=== PATIENT | female | born 1960 | race Hispanic/Latino ===

== ENCOUNTER 2018-02-27 13:57 | Emergency (ER) | payer OTHER ==
[2018-02-27 14:02] VITALS: RESP 16; TEMP 98.1; O2SAT 100
[2018-02-27] MEDS ORDERED: Tdap Vaccine 0.5 ml Vial (10-64 yrs) IM ONE ×2 (14:14→14:35)
[2018-02-27] MEDS ORDERED: Amoxicillin-Clav 875-125 mg Tab PO STA (14:14)
--- NOTE | 2018-02-27 14:24 | ED PDOC ---
HPI: Eye Injury/Pain Time Seen by Provider: 02/27/18 14:04 Chief Complaint (Nursing): Eye Problem Chief Complaint (Provider): Eye Problem History Per: Patient History/Exam Limitations: no limitations Onset/Duration Of Symptoms: Other (just prior to arrival) Current Symptoms Are (Timing): Still Present Additional Complaint(s): 57 y/o female with a pmhx of HTN, who presents to the ED for evaluation of a scratch to her left upper eyelid which occurred just prior to arrival. Patient [place] the dog park [place] she was playing with a friend's dog who got excited and jumped on her, causing her to receive a scratch to the upper eyelid of her left eye from the dog's paw. Patient denies any injury to the eye itself. Patient denies active bleeding or visual changes. Also denies fever, LOC , or headache. 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 LMP was [address] Catina Mancilla Past Medical History Reviewed: Historical Data, Nursing Documentation, Vital Signs Vital Signs: Last Vital Signs Temp 98.1 F 02/27/18 14:00 Pulse 98 H 02/27/18 14:00 Resp 16 02/27/18 14:00 BP 169/89 H 02/27/18 14:00 Pulse Ox 100 02/27/18 14:00 - Medical History PMH: HTN - Surgical History Surgical History: Cholecystectomy - Family History Family History: States: Unknown Family Hx - Social History Current smoker - smoking cessation education provided: No Alcohol: Social Drugs: Denies - Home Medications Home Medications: Ambulatory Orders Medication Instructions Recorded Amoxicillin/Clavulanate [Augmentin 1 tab PO BID #14 tab 02/27/18 875 MG-125 MG] Bacitracin OINT 1 applic TP BID #1 tube 02/27/18 - Allergies Allergies/Adverse Reactions: Allergies Allergy/AdvReac Type Severity Reaction Status Date / Time Sulfa (Sulfonamide Allergy RASH Verified 02/27/18 14:00 Antibiotics) Review of Systems ROS Statement: Except As Marked, All Systems Reviewed And Found Negative Eyes: Positive for: Pain (left upper eyelid), Other Skin: Positive for: Lesions (abrasion to left upper eyelid) Physical Exam - Reviewed Nursing Documentation Reviewed: Yes Vital Signs Reviewed: Yes - Physical Exam Comments: GENERAL APPEARANCE: Patient is awake, alert, oriented x 3, in no acute distress. Ambulatory in ED with a steady gait. SKIN: Warm, dry; (-) cyanosis NECK: Supple, FROM ENT: Mucus membranes moist. Nasal bridge nontender. Nares patent bilaterally. EYES: (+) 0.5 cm superficial abrasion to the medial aspect of the upper eyelid just superior to the medial canthus of the left eye, (-) active bleeding (+) mild surrounding ecchymosis, (+) mild tendernes to palpation (-) edema of eyelid. (-) orbital or globe tenderness. (-) conjunctival pallor or injection, (-) scleral icterus, (-) nystagmus, (-) hyphema, (-) chemosis. CHEST AND RESPIRATORY: (-) rales, (-) rhonchi, (-) wheezes; breath sounds equal. Speaking in full sentences, respirations even and nonlabored. ABDOMEN: Soft, (-) distention, (-) tenderness, (-) guarding. NEURO AND PSYCH: Mental status as above. business process consultant: Intact. Pupils equal and reactive ; EOMI and painless; (-) facial asymmetry; tongue and uvula midline. Strength symmetric. - ECG O2 Sat by Pulse Oximetry: 100 (RA) Pulse Ox Interpretation: Normal Medical Decision Making Medical Decision Makin:14 Initial Impression: Eyelid abrasion Plan: --Tetanus 0.5ml IM --Augmentin 1 tab PO --Ultram 50mg PO ( Patient states she will not be driving home) --Re-evaluation --Wound irrigation and topical bacitracin. Rabies vaccine is not indicated in light of history and physical examination. 1500 On re-evaluation, patient reports improvement of symptoms, denies any visual changes. EOMI and painless with no orbital tenderness. On exam, patient remains AAOx3, in no acute distress. On exam, neck is supple, lungs CTA, cardiac RRR, neuro exam shows no focal findings. Repeat BP: 137/83, Repeat HR: 79. VSS , stable for discharge. Diagnostic results d/w the patient in great detail. Dx of eyelid abrasion/dog scratch d/w the patient. Based on history, exam and diagnostic results plan will be for outpatient follow up. Advised to follow up with primary care physician in 1-2 days without fail. Advised to take medication as prescribed. Return to the emergency room at any time for any new or worsening symptoms. Patient states she fully agrees with and understands discharge instructions. States that she agrees with the plan and disposition. Verbalized and repeated discharge instructions and plan. I have given the patient opportunity to ask any additional questions. Scribe Attestation: Documented by Darinel Krueger, acting as a scribe for LEO Watts Provider Scribe Attestation: All medical record entries made by the Scribe were at my direction and personally dictated by me. I have reviewed the chart and agree that the record accurately reflects my personal performance of the history, physical exam, medical decision making, and the department course for this patient. I have also personally directed, reviewed, and agree with the discharge instructions and disposition. Disposition - Clinical Impression Clinical Impression: Abrasion of eyelid, left, Dog scratch - Patient ED Disposition Is Patient to be Admitted: No Counseled Patient/Family Regarding: Diagnosis, Need For Followup, Rx Given - Disposition Disposition: Routine/Home Disposition Time: 15:01 Condition: STABLE Additional Instructions: FOLLOW UP WITH PMD IN 1-2 DAYS FOR WOUND CHECK. KEEP WOUND CLEAN AND DRY, CLEAN 2X DAILY WITH WARM WATER AND SOAP. APPLY ANTIBIOTIC OINTMENT NEEDED. Prescriptions: Amoxicillin/Clavulanate [Augmentin 875 MG-125 MG] 1 tab PO BID #14 tab Bacitracin OINT 1 applic TP BID #1 tube Instructions: Skin Abrasions, Wound Care Forms: [employer] (Estonian) Print Language: ISRAELI - POA Present On Arrival: Falls Or Trauma
[2018-02-27] MEDS ORDERED: Amoxicillin-Clav 875-125 mg Tab PO ONE (14:36)
[2018-02-27 15:12] VITALS: BP 137/83; PULSE 79
== END 2018-02-27 15:28 | disposition home or self-care (01) ==
LOC: H.ER 13:57
DX: S00.212A Abrasion of left eyelid and periocular area, initial encounter (principal); W54.8XXA Other contact with dog, initial encounter; Y92.830 Public park as the place of occurrence of the external cause; I10 Essential (primary) hypertension